=== PATIENT | female | born 1995 | race Two or more races ===

== ENCOUNTER 2017-11-17 14:36 | Emergency (ER) | payer OTHER ==
[~2017-11-17] VITALS: Ht 162.6 cm; Wt 49.9 kg
== END 2017-11-17 19:09 | disposition home or self-care (01) ==
LOC: ER 14:36
DX: J45.998 Other asthma (principal); J01.80 Other acute sinusitis

== ENCOUNTER → 2017-11-17 | Emergency (ER) | payer OTHER | END | disposition left against medical advice (07) | LOC: ER 13:33 | DX: Z53.20 Procedure and treatment not carried out because of patient's decision for unspecified reasons (principal) ==

== ENCOUNTER 2019-05-08 20:45 | Emergency (ER) | payer OTHER ==
[~2019-05-08] VITALS: Ht 157.5 cm; Wt 52.2 kg
[2019-05-08] MEDS ORDERED: CLONAZEPAM1 MG (21:09)
[2019-05-08] MEDS ORDERED: LAMICTAL100 M1 (21:09)
[2019-05-08] MEDS ORDERED: ALLEGRA ALLERG180 MG PO (22:28)
== END 2019-05-08 22:36 | disposition home or self-care (01) ==
LOC: ER 20:45
DX: R21 Rash and other nonspecific skin eruption (principal)

== ENCOUNTER 2023-10-02 11:29 | Emergency (ER) | payer OTHER ==
[~2023-10-02] VITALS: Ht 160 cm; Wt 54.0 kg
[~2023-10-02 11:29] MED LIST: ALLEGRA ALLERG180 MG PO; CLONAZEPAM1 MG; LAMICTAL100 M1
[2023-10-02] MEDS ORDERED: 0.9 % SODIUM CHLORIDE 1,000 ML IV STA (12:58)
[2023-10-02] MEDS ORDERED: ONDANSETRON HCL 2 MG/ML VIAL IV ONE (13:00)
[2023-10-02] MEDS ORDERED: FAMOtidine 10 MG/ML (4ML VIAL) IV STA (13:00)
[2023-10-02 14:02] LABS: HEMATOCRIT 43.1 % (36.0-45.00); HEMOGLOBIN 14.7 g/dL (12.0-15.00); MEAN CELL VOLUME 92.2 fL (80.00-100.00); MEAN CORPUSCULAR HEMOGLOBIN 31.5 pg (27.00-32.0); MEAN CORPUSCULAR HGB CONC 34.2 g/dl (32.0-36.0); PLATELET COUNT 251 K/uL (150-450); RED BLOOD COUNT 4.68 M/uL (4.00-6.00); RED CELL DISTRIBUTION WIDTH 13.9 % (11.5-14.5)
[2023-10-02 14:22] LABS: CREATININE SERUM 0.8 mg/dL (0.55-1.02); GFR 86.7
[2023-10-02 14:28] LABS: POTASSIUM 2.98 mEq/L (3.5-5.1)
[2023-10-02 15:53] LABS: URINE APPEARANCE Clear; URINE BACTERIA 1082.2 uL (0.0-1933); URINE BILIRRUBIN Negative (NEGATIVE); URINE BLOOD Large; URINE COLOR Yellow; URINE EPITHELIAL CELLS 42.8 uL (0.0-38.8); URINE GLUCOSE Negative (NEGATIVE); URINE LEUKOCYTE Small; URINE NITRATE Negative; URINE PROTEIN 30 (NEGATIVE); URINE UROBILINOGEN 0.2 E.U./dl; URINE WBC 45.5 uL (0.0-23.2)
[2023-10-02] MEDS ORDERED: POTASSIUM CHLORIDE 10 MEQ CAPSULE PO ONE (16:45)
[2023-10-02] MEDS ORDERED: ZOFRAN8 MG PO (16:56)
[2023-10-02] MEDS ORDERED: CARAFATE1 GM PO (16:56)
[2023-10-02] MEDS ORDERED: PEPCID AC20 MG PO (16:56)
== END 2023-10-02 17:05 | disposition home or self-care (01) ==
LOC: ER 11:30
PROVIDERS: General Practice
DX: K52.89 Other specified noninfective gastroenteritis and colitis (principal); E86.0 Dehydration